=== PATIENT | female | born 1995 | race African-American/Black ===

== ENCOUNTER 2018-12-29 20:33 | Emergency (ER) | payer MEDICAID ==
[~2018-12-29] VITALS: Ht 170.2 cm; Wt 128.3 kg
[2018-12-29] MEDS ORDERED: OXYMETAZOLINE HCL NASAL SPRAY 15ML BOTHNSTRLS STA (21:09)
[2018-12-29 21:57] VITALS: BP 137/79
== END 2018-12-29 21:58 | disposition home or self-care (01) ==
LOC: ER 20:33
DX: R04.0 Epistaxis (principal)
CPT/HCPCS: 99283

== ENCOUNTER 2019-01-13 17:37 | Emergency (ER) | payer MEDICAID ==
[~2019-01-13] VITALS: Ht 170.2 cm; Wt 126.0 kg
[2019-01-13] MEDS ORDERED: ALBUTEROL (0.083%) 2.5MG/3ML NEB HHN STA (18:17)
[2019-01-13] MEDS ORDERED: PREDNISONE 20MG TABLET PO ONE (18:45)
[2019-01-13 19:25] VITALS: BP 110/78
== END 2019-01-13 19:33 | disposition home or self-care (01) ==
LOC: ER 17:37
DX: J20.9 Acute bronchitis, unspecified (principal); J03.90 Acute tonsillitis, unspecified; F17.290 Nicotine dependence, other tobacco product, uncomplicated
CPT/HCPCS: 81025; 87070; 87430; 94640; 99283; 99406; J7512; J7611

== ENCOUNTER 2021-02-04 02:00 | Emergency (ER) | payer MEDICAID ==
[~2021-02-04] VITALS: Ht 167.6 cm; Wt 84.0 kg
[2021-02-04] MEDS ORDERED: LIDOCAINE HCL/PF 1% 10 MG/ML 5ML VIAL IJ ONE (04:15)
[2021-02-04] MEDS ORDERED: HYDROCODONE/ACETAMINOPHEN 5/325MG TABLET PO ONE (04:15)
[2021-02-04] MEDS ORDERED: BACITRACIN ZINC OINT UDPKT TOP ONE (04:15)
[2021-02-04 05:36] VITALS: BP 156/80
[2021-02-04] MEDS ORDERED: NAPR-681 PO (06:25)
[2021-02-04] MEDS ORDERED: T3 PO (06:25)
== END 2021-02-04 06:44 | disposition home or self-care (01) ==
LOC: ER 02:00
DX: S01.81XA Laceration without foreign body of other part of head, initial encounter (principal); M25.561 Pain in right knee; M25.571 Pain in right ankle and joints of right foot; V49.49XA Driver injured in collision with other motor vehicles in traffic accident, initial encounter; Y93.89 Activity, other specified; Y92.89 Other specified places as the place of occurrence of the external cause; Y99.8 Other external cause status
CPT/HCPCS: 70450; 73562; 73610; 81025; 99284; J3490

== ENCOUNTER 2021-02-06 16:30 | Emergency (ER) | payer MEDICAID ==
[~2021-02-06] VITALS: Ht 170.2 cm; Wt 130.3 kg
[~2021-02-06 16:30] MED LIST: NAPR-681 PO; T3 PO
[2021-02-06 17:12] VITALS: BP 164/103
== END 2021-02-06 17:13 | disposition home or self-care (01) ==
LOC: ER 16:30
DX: M25.571 Pain in right ankle and joints of right foot (principal); I10 Essential (primary) hypertension
CPT/HCPCS: 99281

== ENCOUNTER 2021-02-11 12:49 | Emergency (ER) | payer MEDICAID ==
[~2021-02-11] VITALS: Ht 170.2 cm; Wt 130.0 kg
[2021-02-11 13:39] VITALS: BP 148/70
== END 2021-02-11 13:39 | disposition home or self-care (01) ==
LOC: ER 12:49
DX: Z48.02 Encounter for removal of sutures (principal)
CPT/HCPCS: 99281; Z7610